=== PATIENT | male | born 1995 | race Caucasian/White ===

== ENCOUNTER 2020-06-16 14:32 | Emergency (ER) | payer OTHER ==
[~2020-06-16] VITALS: Ht 185.4 cm; Wt 73.9 kg
[2020-06-16] MEDS ORDERED: KETO10TA2 (15:07)
== END 2020-06-16 22:06 | disposition home or self-care (01) ==
LOC: ER 14:32 → CPU-OBS 15:01 → ER 15:01
DX: R00.0 Tachycardia, unspecified (principal); R00.2 Palpitations; R07.1 Chest pain on breathing; R53.81 Other malaise; T43.644A Poisoning by ecstasy, undetermined, initial encounter; Y92.89 Other specified places as the place of occurrence of the external cause; Z03.818 Encounter for observation for suspected exposure to other biological agents ruled out
CPT/HCPCS: G0378; G0379; 36600; 70450; 82805; 93005

== ENCOUNTER 2021-08-29 15:52 | Emergency (ER) | payer OTHER ==
[~2021-08-29] VITALS: Ht 185.4 cm; Wt 78.9 kg
[~2021-08-29 15:52] MED LIST: KETO10TA2
== END 2021-08-29 19:34 | disposition home or self-care (01) ==
LOC: ER 15:52
DX: L03.032 Cellulitis of left toe (principal); G62.9 Polyneuropathy, unspecified; Z91.013 Allergy to seafood

== ENCOUNTER 2023-01-03 09:29 | Emergency (ER) | payer OTHER ==
[~2023-01-03] VITALS: Ht 188 cm; Wt 78.0 kg
== END 2023-01-03 13:42 | disposition home or self-care (01) ==
LOC: ER 09:29
DX: H60.00 Abscess of external ear, unspecified ear (principal); Z91.041 Radiographic dye allergy status; Z91.013 Allergy to seafood